=== PATIENT | female | born 1975 | race Caucasian/White ===

== ENCOUNTER 2017-08-16 14:16 | Emergency (ER) | payer MEDICAID ==
[2016-01-17 18:12] VITALS: BMI 17.2
[~2017-08-16 14:16] MED LIST: HYDROCODONE-APA1 TAB PO; SEROQUEL25 MG PO; SEROQUEL300 MG PO; SOMA350 MG PO; XANAX0.25 MG PO
== END 2017-08-16 17:09 | disposition home or self-care (01) ==
LOC: D.ER 14:16
DX: S69.92XA Unspecified injury of left wrist, hand and finger(s), initial encounter (principal); Y04.2XXA Assault by strike against or bumped into by another person, initial encounter; Y93.89 Activity, other specified; Y92.019 Unspecified place in single-family (private) house as the place of occurrence of the external cause; E11.9 Type 2 diabetes mellitus without complications; Z79.4 Long term (current) use of insulin

== ENCOUNTER 2017-10-04 17:18 | Observation (INO) | payer MEDICAID ==
[2016-01-17 18:12] VITALS: BMI 17.2
[2017-10-04 18:35] LABS: HCG URINE NEGATIVE (NEGATIVE)
[2017-10-04 18:46] LABS: HEMATOCRIT 33.9 % (36.0-48.0); HEMOGLOBIN 11.6 g/dL (12-16); MCH 34.9 pg (26.0-34.0); MCHC 34.2 g/dL (31.0-37.0); MCV 102.1 fL (80.0-100.0); MEAN PLATELET VOLUME 10.1 fL (7.4-10.4); PLATELET COUNT 242 10x3/uL (130-400); RBC 3.32 10x6/uL (4.00-5.40); RDW 12.8 % (11.5-14.5)
[2017-10-04 18:53] LABS: APPEARANCE HAZY (CLEAR); BILIRUBIN NEGATIVE (NEGATIVE); COLOR YELLOW (YELLOW); GLUCOSE NEGATIVE (NEGATIVE); KETONE NEGATIVE (NEGATIVE); NITRITE POSITIVE (NEGATIVE); PROTEIN NEGATIVE (NEGATIVE); SPECIFIC GRAVITY 1.015 (1.005-1.020); UROBILINOGEN NORMAL (NORMAL)
[2017-10-04 18:55] LABS: BACTERIA MODERATE /hpf (NONE SEEN); EPITHELIAL CELLS 0-5 /hpf (0-5); RED CELLS - URINE OCC /hpf (0-5)
[2017-10-04 18:57] LABS: UDS - AMPHET NEGATIVE QUAL (NEGATIVE); UDS - BARB NEGATIVE QUAL (NEGATIVE); UDS - BENZO POSITIVE QUAL (NEGATIVE); UDS - COCAINE NEGATIVE QUAL (NEGATIVE); UDS - OPIATE NEGATIVE QUAL (NEGATIVE); UDS - PCP NEGATIVE QUAL (NEGATIVE); UDS - THC NEGATIVE QUAL (NEGATIVE)
[2017-10-04 19:01] LABS: ALBUMIN 3.6 g/dL (3.4-5.0); ALKALINE PHOSPHATASE 77 U/L (46-116); ALT (SGPT) 24 U/L (10-68); BILIRUBIN - TOTAL 0.32 mg/dL (0.2-1.3); CALC OSMOLALITY 288 mosm/kg (275-300); CALCIUM 9.2 mg/dL (8.5-10.1); CARBON DIOXIDE 25.3 mmol/L (21.0-32.0); CHLORIDE - SERUM 107 mmol/L (98-107); CREATININE - SERUM 0.8 mg/dL (0.6-1.3); GLUCOSE 98 mg/dL (74-106); POTASSIUM - SERUM 3.8 mmol/L (3.5-5.1); PROTEIN - SERUM 7.2 g/dL (6.4-8.2); SODIUM 144 mmol/L (136-145); UREA NITROGEN 18 mg/dL (7-18); eGFR NON AFRICAN AMERICAN 84 mL/min (90-120)
[2017-10-04 19:11] LABS: EOSINOPHILS 4 % (0-7); LYMPHOCYTES 54 % (15-50); MONOCYTES 4 % (2-11); NEUTROPHILS 38 % (40-80); PLATELET ESTIMATE NORMAL
[2017-10-05] MEDS ORDERED: MACROBID100 MG PO (06:42)
== END 2017-10-05 07:45 | disposition home or self-care (01) ==
LOC: D.ER 17:18 → D.SDCHOLD 10-05 01:05 → OBSVTIME 10-05 01:05 → D.ER 10-05 07:45 → D.SDCHOLD 10-05 07:45
PROVIDERS: Family Medicine
DX: T42.4X1A Poisoning by benzodiazepines, accidental (unintentional), initial encounter (principal); R41.82 Altered mental status, unspecified; N39.0 Urinary tract infection, site not specified; F20.9 Schizophrenia, unspecified; F31.9 Bipolar disorder, unspecified

== ENCOUNTER → 2017-11-15 20:19 | Emergency (ER) | payer MEDICAID ==
[2016-01-17 18:12] VITALS: BMI 17.2
[~2017-11-15 20:19] MED LIST changes: +MACROBID100 MG PO
== END | disposition home or self-care (01) ==
LOC: D.ER 20:19
DX: S61.210D Laceration without foreign body of right index finger without damage to nail, subsequent encounter (principal); X58.XXXD Exposure to other specified factors, subsequent encounter; Z48.02 Encounter for removal of sutures; E11.9 Type 2 diabetes mellitus without complications; Z79.4 Long term (current) use of insulin

== ENCOUNTER 2017-11-16 11:48 | Emergency (ER) | payer MEDICAID ==
[2016-01-17 18:12] VITALS: BMI 17.2
== END 2017-11-16 13:35 | disposition home or self-care (01) ==
LOC: D.ER 11:48
DX: S61.210D Laceration without foreign body of right index finger without damage to nail, subsequent encounter (principal); X58.XXXD Exposure to other specified factors, subsequent encounter; Z48.02 Encounter for removal of sutures; E11.9 Type 2 diabetes mellitus without complications; Z79.4 Long term (current) use of insulin